=== PATIENT | male | born 1990 | race Caucasian/White ===

== ENCOUNTER → 2018-05-25 | Outpatient (REF) | payer OTHER ==
[2018-05-25 14:25] LABS: APPEARANCE, URINE HAZY (CLEAR); BACTERIA, URINE AUTO NEGATIVE (NEGATIVE); BILIRUBIN, URINE AUTO NEGATIVE (NEGATIVE); BLOOD, URINE BLOOD 1+ (NEGATIVE); COLOR, URINE AMBER (YELLOW); GLUCOSE, URINE (UA) AUTO NEGATIVE (NEGATIVE); KETONE, URINE AUTO NEGATIVE (NEGATIVE); LEUKOCYTE ESTERASE, URINE AUTO NEGATIVE (NEGATIVE); MUCUS, URINE SMALL (NEGATIVE); NITRITE, URINE AUTO NEGATIVE (NEGATIVE); PROTEIN, URINE AUTO NEGATIVE (NEGATIVE); RBC, URINE AUTO 5 /HPF (0-3); SPECIFIC GRAVITY URINE AUTO 1.018 (1.002-1.035); SQUAMOUS EPITHELIAL CELL UR AU 0 /HPF (0-6); UROBILINOGEN, URINE AUTO 0.2 mg/dL (0.0-2.0); WBC, URINE AUTO 2 /HPF (0-3)
[2018-05-25 14:40] LABS: TOTAL PROTEIN,RANDOM URINE 27.2 MG/DL (0.0-12.0)
[2018-05-25 14:41] LABS: COMPLEMENT C3 99 MG/DL (90-180); COMPLEMENT C4 14 MG/DL (10-40); RHEUMATOID FACTOR QUANT < 10.0 IU/ML (<15.0)
[2018-05-29 16:39] LABS: ANA (HEP2) Positive (.); ANTI DOUBLE STRAND-DNA AB <1 IU/mL (0-9); CYCLIC CITRULLINATED PEPTIDE 7 units (0-19); RNP ANTIBODY < 0.2 AI (0.0-0.9); SMITHS ANTIBODY < 0.2 AI (0.0-0.9); SSA SJOGRENS A <0.2 AI (0.0-0.9); SSB SJOGRENS B <0.2 AI (0.0-0.9)
== END ==
LOC: M SFHCPLAZ 12:06
PROVIDERS: ATTEND Internal Medicine Rheumatology
DX: R21 Rash and other nonspecific skin eruption (principal)

== ENCOUNTER → 2018-06-01 | Outpatient (CLI) | payer OTHER ==
[~2018-06-01] MED LIST: GASTROGRAFIN SOLUTION 30ML (Q9963) As Ordered ONE; ISOVUE-370 76% 100ML VIAL (Q9967) As Ordered ONE
--- NOTE | 2018-06-01 21:41 | REP ---
Clinical: History of Crohn disease with abdominal pain and weight loss. Technique: Axial contrast enhanced images from the lung bases to the pubic symphysis using oral (per protocol) and 100 ml Isovue 370 intravenous contrast material with coronal and sagittal re-formations. Comparison: 02/18/2010. Findings: Lung bases are clear. Visualized heart and pericardium normal. Liver, pancreas, bilateral adrenal glands and kidneys are normal. Spleen demonstrates 10 mm cystic lesion along the anterior margin which may represent cyst. The patient is status post cholecystectomy. The the patient is noted to be status post total colectomy with ostomy via the left anterior abdominal wall. Small bowel is without obstruction or acute inflammatory process. Pelvis demonstrates normal bladder. Prostate gland is somewhat heterogeneous and enlarged which may warrant followup. No ascites. No free air. No obvious adenopathy. Abdominal aorta and vasculature normal. Musculoskeletal structures are intact. Impression: 1. 10 mm cystic lesion in the spleen may be followed by ultrasound. Appearance is relatively benign and likely represents simple cyst or hemangioma. 2. Evidence of prior total colectomy. No bowel obstruction or acute inflammatory process noted. 3. No ascites. 4. Mildly enlarged heterogeneous enhancing prostate gland warrants clinical and physical correlation. Electronically Signed by Bear Vila MD 06/01/2018 09:33 P
== END ==
LOC: M RAD 14:10
PROVIDERS: ATTEND Internal Medicine Gastroenterology
DX: K50.919 Crohn's disease, unspecified, with unspecified complications (principal); R63.4 Abnormal weight loss; R93.5 Abnormal findings on diagnostic imaging of other abdominal regions, including retroperitoneum; Z90.49 Acquired absence of other specified parts of digestive tract
CPT/HCPCS: 74177; Q9963; Q9967

== ENCOUNTER 2018-06-07 14:14 | Outpatient (CLI) | payer OTHER ==
[~2018-06-07] VITALS: Ht 167.6 cm; Wt 45.5 kg
[2018-06-07] MEDS ORDERED: ACETAMINOPHEN TAB 650MG DOSE (2X325MG) PO ONE (15:00)
[2018-06-07] MEDS ORDERED: diphenhydrAMINE 25 MG CAP PO ONE (15:00)
[2018-06-07] MEDS ORDERED: VEDOLIZUMAB 300 MG in NS 250 ML IV ONE (15:00)
[2018-06-07 15:07] VITALS: BP 112/65
[2018-06-07 15:45] VITALS: BP 107/66
[2018-06-07 16:00] VITALS: BP 97/60
== END 2018-06-07 16:00 | disposition home or self-care (01) ==
LOC: M INFU 14:14
PROVIDERS: ATTEND Internal Medicine Gastroenterology
DX: K50.90 Crohn's disease, unspecified, without complications (principal)
CPT/HCPCS: 96365; J3380

== ENCOUNTER → 2018-06-28 | Outpatient (REF) | payer OTHER ==
[~2018-06-28] MED LIST changes: +ACIDTAB3 PO; +CLOT1CRE71 TOP; +DOXY-350 PO; +DOXY100C PO; -GASTROGRAFIN SOLUTION 30ML (Q9963) As Ordered ONE; +HYDR-3713 PO; -ISOVUE-370 76% 100ML VIAL (Q9967) As Ordered ONE; +LOPE2EL PO; +PAXI10TA12 PO; +PRED20TA PO
== END ==
LOC: M SFHCPLAZ 09:45
PROVIDERS: ATTEND Dermatology
DX: L02.91 Cutaneous abscess, unspecified (principal)

== ENCOUNTER 2018-07-19 14:43 | Outpatient (CLI) | payer OTHER ==
[~2018-07-19] VITALS: Ht 167.6 cm; Wt 40.0 kg
[2018-07-19 14:55] VITALS: BP 109/57
[2018-07-19] MEDS ORDERED: diphenhydrAMINE 25 MG CAP PO ONE (16:00)
[2018-07-19] MEDS ORDERED: VEDOLIZUMAB 300 MG in NS 250 ML IV ONE (16:00)
[2018-07-19] MEDS ORDERED: ACETAMINOPHEN TAB 650MG DOSE (2X325MG) PO ONE (16:00)
[2018-07-19 16:10] VITALS: BP 105/57
== END 2018-07-19 16:10 | disposition home or self-care (01) ==
LOC: M INFU 14:43
PROVIDERS: ATTEND Internal Medicine Gastroenterology
DX: K50.90 Crohn's disease, unspecified, without complications (principal); Z91.040 Latex allergy status
CPT/HCPCS: 96365; J3380

== ENCOUNTER 2018-11-08 14:31 | Outpatient (CLI) | payer OTHER ==
[~2018-11-08] VITALS: Ht 167.6 cm; Wt 44.7 kg
[2018-11-08 14:35] VITALS: BP 101/67
[2018-11-08] MEDS ORDERED: MULTCAP PO (14:53)
[2018-11-08] MEDS ORDERED: diphenhydrAMINE 25 MG CAP PO ONE (15:30)
[2018-11-08] MEDS ORDERED: VEDOLIZUMAB 300 MG in NS 250 ML IV ONE (15:30)
[2018-11-08] MEDS ORDERED: ACETAMINOPHEN TAB 650MG DOSE (2X325MG) PO ONE (15:30)
[2018-11-08 16:10] VITALS: BP 111/57
== END 2018-11-08 16:10 | disposition home or self-care (01) ==
LOC: M INFU 14:31
PROVIDERS: ATTEND Internal Medicine Gastroenterology
DX: K50.90 Crohn's disease, unspecified, without complications (principal)
CPT/HCPCS: 96365; J3380

== ENCOUNTER 2019-01-03 14:19 | Outpatient (CLI) | payer OTHER ==
[~2019-01-03] VITALS: Ht 167.6 cm; Wt 39.0 kg
[~2019-01-03 14:19] MED LIST changes: +MULTCAP PO
[2019-01-03 14:20] VITALS: BP 95/68
[2019-01-03] MEDS ORDERED: ACETAMINOPHEN TAB 650MG DOSE (2X325MG) PO ONE (14:30)
[2019-01-03] MEDS ORDERED: diphenhydrAMINE 25 MG CAP PO ONE (14:30)
[2019-01-03] MEDS ORDERED: VEDOLIZUMAB 300 MG in NS 250 ML IV ONE (14:30)
[2019-01-03] MEDS ORDERED: ENTY1INJ IV (15:00)
[2019-01-03 15:45] VITALS: BP 99/67
[2019-03-28] MEDS ORDERED: LOPE1CAP5 PO (11:14)
[2019-03-28] MEDS ORDERED: OMEP10CASR PO (11:14)
== END 2019-01-03 15:45 | disposition home or self-care (01) ==
LOC: M INFU 14:19
PROVIDERS: ATTEND Internal Medicine Gastroenterology
DX: K50.90 Crohn's disease, unspecified, without complications (principal); Z79.4 Long term (current) use of insulin; Z79.891 Long term (current) use of opiate analgesic; Z79.899 Other long term (current) drug therapy

== ENCOUNTER 2019-03-05 14:34 | Outpatient (CLI) | payer OTHER ==
[~2019-03-05] VITALS: Ht 167.6 cm; Wt 39.9 kg
[~2019-03-05 14:34] MED LIST changes: +ENTY1INJ IV
[2019-03-05 14:40] VITALS: BP 100/55
[2019-03-05] MEDS ORDERED: ACETAMINOPHEN TAB 650MG DOSE (2X325MG) PO ONE (15:30)
[2019-03-05] MEDS ORDERED: diphenhydrAMINE 25 MG CAP PO ONE (15:30)
[2019-03-05] MEDS ORDERED: VEDOLIZUMAB 300 MG in NS 250 ML IV ONE (16:00)
[2019-03-05 16:25] VITALS: BP 96/59
== END 2019-03-05 16:25 | disposition home or self-care (01) ==
LOC: M INFU 14:34
PROVIDERS: ATTEND Internal Medicine Gastroenterology
DX: K50.90 Crohn's disease, unspecified, without complications (principal); Z91.040 Latex allergy status
CPT/HCPCS: 96365; J3380

== ENCOUNTER 2019-04-10 11:49 | Day surgery (SDC) | payer OTHER ==
[~2019-04-10] VITALS: Ht 167.6 cm; Wt 48.4 kg
[~2019-04-10 11:49] MED LIST changes: +LOPE1CAP5 PO; +NS 1,000 ML IV ONE; +OMEP10CASR PO
[2019-04-10] MEDS ORDERED: propofoL 200 MG/20 ML VIAL As Ordered ONE (12:35)
[2019-04-10] MEDS ORDERED: LIDOCAINE 2% INJ 100 MG/5 ML SDV (FOR ANES.) As Ordered ONE ×2 (12:35→12:40)
--- NOTE | 2019-04-10 12:44 | ROOR ---
Patient Name: Alna Servin Procedure Date: 04/10/2019 12:28 PM Date of : 1990 Age: 28 Room: [facility] Gender: Male Note Status: Finalized Procedure: Upper Endoscopy + Biopsies Indications: Epigastric abdominal pain, Abdominal bloating, Early satiety Providers: Ezekiel Cates MD Referring MD: Lizett Mitchell Requesting Provider: Medicines: Monitored Anesthesia Care Complications: No immediate complications. Procedure: Pre-Anesthesia Assessment: - The heart rate, respiratory rate, oxygen saturations, blood pressure, adequacy of pulmonary ventilation, and response to care were monitored throughout the procedure. The Endoscope was introduced through the mouth, and advanced to the second part of duodenum. The upper GI endoscopy was accomplished without difficulty. The patient tolerated the procedure well. Findings: The Z-line was regular and was found 35 cm from the incisors. Multiple biopsies were obtained with cold forceps for evaluation to rule out Lehman's Esophagus randomly at the gastroesophageal junction. A small hiatal hernia was present. No other significant abnormalities were identified in a careful examination of the stomach. Biopsies were taken with a cold forceps in the gastric antrum for Helicobacter pylori testing. The exam of the duodenum was otherwise normal. Impression: - Z-line regular, 35 cm from the incisors. - Small hiatal hernia. - Multiple biopsies were obtained at the gastroesophageal junction. - Biopsies were taken with a cold forceps for Helicobacter pylori testing. - The examination was otherwise normal. Recommendation: - Patient has a contact number available for emergencies. The signs and symptoms of potential delayed complications were discussed with the patient. Return to normal activities tomorrow. Written discharge instructions were provided to the patient. - High fiber diet. - Discharge patient to home. - Follow an antireflux regimen. - Continue present medications. - Await pathology results. - Telephone GI clinic for pathology results in 1 week. - Return to referring physician. - The findings and recommendations were discussed with the patient's family. Ezekiel Cates MD Ezekiel Cates MD 04/10/2019 12:44:24 PM Electronically signed by Ezekiel Cates MD Number of Addenda: 0 Note Initiated On: 04/10/2019 12:28 PM Estimated Blood Loss: Estimated blood loss: none.
[2019-04-10 13:05] VITALS: BP 98/53
== END 2019-04-10 13:17 | disposition home or self-care (01) ==
LOC: M OPP 11:49
PROVIDERS: ATTEND Internal Medicine Gastroenterology
DX: K44.9 Diaphragmatic hernia without obstruction or gangrene (principal); R10.13 Epigastric pain; R14.0 Abdominal distension (gaseous); R68.81 Early satiety; F17.210 Nicotine dependence, cigarettes, uncomplicated; Z79.899 Other long term (current) drug therapy

== ENCOUNTER 2019-04-17 14:44 | Outpatient (CLI) | payer OTHER ==
[~2019-04-17] VITALS: Ht 167.6 cm; Wt 39.0 kg
[~2019-04-17 14:44] MED LIST changes: +ACETAMINOPHEN TAB 650MG DOSE (2X325MG) PO ONE; -NS 1,000 ML IV ONE; +diphenhydrAMINE 25 MG CAP PO ONE
[2019-04-17 15:00] VITALS: BP 99/55
[2019-04-17] MEDS ORDERED: VEDOLIZUMAB 300 MG in NS 250 ML IV ONE (15:00)
[2019-04-17 16:00] VITALS: BP 93/52
== END 2019-04-17 16:15 | disposition home or self-care (01) ==
LOC: M INFU 14:44
PROVIDERS: ATTEND Internal Medicine Gastroenterology
DX: K50.90 Crohn's disease, unspecified, without complications (principal); Z91.040 Latex allergy status
CPT/HCPCS: 96365; J3380

== ENCOUNTER 2019-05-29 14:30 | Outpatient (CLI) | payer OTHER ==
[~2019-05-29] VITALS: Ht 165.1 cm; Wt 39.0 kg
[2019-05-29 14:25] VITALS: BP 110/68
[~2019-05-29 14:30] MED LIST changes: -ACETAMINOPHEN TAB 650MG DOSE (2X325MG) PO ONE; -diphenhydrAMINE 25 MG CAP PO ONE
[2019-05-29] MEDS ORDERED: VEDOLIZUMAB 300 MG in NS 250 ML IV ONE (15:30)
[2019-05-29] MEDS ORDERED: diphenhydrAMINE 25 MG CAP PO ONE (15:30)
[2019-05-29] MEDS ORDERED: ACETAMINOPHEN TAB 650MG DOSE (2X325MG) PO ONE (15:30)
[2019-05-29 16:00] VITALS: BP 98/58
== END 2019-05-29 16:00 | disposition home or self-care (01) ==
LOC: M INFU 14:30
PROVIDERS: ATTEND Internal Medicine Gastroenterology
DX: K50.90 Crohn's disease, unspecified, without complications (principal); Z91.040 Latex allergy status
CPT/HCPCS: 96365; J3380

== ENCOUNTER 2019-07-10 14:02 | Outpatient (CLI) | payer OTHER ==
[~2019-07-10] VITALS: Ht 167.6 cm; Wt 39.0 kg
[2019-07-10 14:10] VITALS: BP 106/66
[2019-07-10] MEDS ORDERED: VEDOLIZUMAB 300 MG in NS 250 ML IV ONE (15:00)
[2019-07-10] MEDS ORDERED: diphenhydrAMINE 25MG CAP PO ONE (15:00)
[2019-07-10] MEDS ORDERED: ACETAMINOPHEN TAB 650MG DOSE (2X325MG) PO ONE (15:00)
[2019-07-10 15:20] VITALS: BP 106/70
== END 2019-07-10 15:20 | disposition home or self-care (01) ==
LOC: M INFU 14:02
PROVIDERS: ATTEND Internal Medicine Gastroenterology
DX: K50.90 Crohn's disease, unspecified, without complications (principal); Z91.040 Latex allergy status
CPT/HCPCS: 96365; J3380

== ENCOUNTER 2019-10-03 14:28 | Outpatient (CLI) | payer OTHER ==
[~2019-10-03] VITALS: Ht 167.6 cm; Wt 88.0 kg
[2019-10-03 14:44] VITALS: BP 99/70
[2019-10-03] MEDS ORDERED: diphenhydrAMINE 25MG CAP PO ONE (14:45)
[2019-10-03] MEDS ORDERED: VEDOLIZUMAB 300 MG in NS 250 ML IV ONE (14:45)
[2019-10-03] MEDS ORDERED: ACETAMINOPHEN TAB 650MG DOSE (2X325MG) PO ONE (14:45)
[2019-10-03 15:44] VITALS: BP 100/59
== END 2019-10-03 15:40 | disposition home or self-care (01) ==
LOC: M INFU 14:28
PROVIDERS: ATTEND Internal Medicine Gastroenterology
DX: K50.90 Crohn's disease, unspecified, without complications (principal)
CPT/HCPCS: 96365; J3380

== ENCOUNTER 2019-11-14 14:30 | Outpatient (CLI) | payer OTHER ==
[~2019-11-14 14:30] MED LIST changes: +VEDOLIZUMAB 300MG VIAL (ENTYVIO) (J3380 PER 1MG) ONE
== END 2019-11-14 16:10 ==
LOC: M INFU 14:30
PROVIDERS: ATTEND Internal Medicine Gastroenterology
DX: K50.90 Crohn's disease, unspecified, without complications (principal)
CPT/HCPCS: 96365; J3380

== ENCOUNTER 2019-12-26 14:22 | Outpatient (CLI) | payer OTHER ==
[~2019-12-26] VITALS: Ht 167.6 cm; Wt 39.0 kg
[~2019-12-26 14:22] MED LIST changes: -VEDOLIZUMAB 300MG VIAL (ENTYVIO) (J3380 PER 1MG) ONE
[2019-12-26 14:25] VITALS: BP 99/62
[2019-12-26] MEDS ORDERED: diphenhydrAMINE 25MG CAP PO ONE (14:30)
[2019-12-26] MEDS ORDERED: VEDOLIZUMAB 300 MG in NS 250 ML IV ONE (14:30)
[2019-12-26] MEDS ORDERED: ACETAMINOPHEN TAB 650MG DOSE (2X325MG) PO ONE (14:30)
[2019-12-26 15:30] VITALS: BP 92/60
== END 2019-12-26 15:30 | disposition home or self-care (01) ==
LOC: M INFU 14:22
PROVIDERS: ATTEND Internal Medicine Gastroenterology
DX: K50.90 Crohn's disease, unspecified, without complications (principal)
CPT/HCPCS: 96365; J3380

== ENCOUNTER 2020-02-06 14:31 | Outpatient (CLI) | payer OTHER ==
[~2020-02-06] VITALS: Ht 167.6 cm; Wt 39.0 kg
[~2020-02-06 14:31] MED LIST changes: +ACETAMINOPHEN TAB 650MG DOSE (2X325MG) PO ONE; +VEDOLIZUMAB 300 MG in NS 250 ML IV ONE; +diphenhydrAMINE 25MG CAP PO ONE
[2020-02-06 14:45] VITALS: BP 95/63
[2020-02-06 15:45] VITALS: BP 103/70
== END 2020-02-06 15:45 | disposition home or self-care (01) ==
LOC: M INFU 14:31
PROVIDERS: ATTEND Internal Medicine Gastroenterology
DX: K50.90 Crohn's disease, unspecified, without complications (principal); Z91.040 Latex allergy status
CPT/HCPCS: 96365; J3380

== ENCOUNTER 2020-04-30 14:20 | Outpatient (CLI) | payer OTHER ==
[~2020-04-30] VITALS: Ht 167.6 cm; Wt 39.0 kg
[~2020-04-30 14:20] MED LIST changes: -ACETAMINOPHEN TAB 650MG DOSE (2X325MG) PO ONE; -VEDOLIZUMAB 300 MG in NS 250 ML IV ONE; -diphenhydrAMINE 25MG CAP PO ONE
[2020-04-30] MEDS ORDERED: VEDOLIZUMAB 300 MG in NS 250 ML IV ONE (14:30)
[2020-04-30] MEDS ORDERED: ACETAMINOPHEN TAB 650MG DOSE (2X325MG) PO ONE (14:30)
[2020-04-30] MEDS ORDERED: diphenhydrAMINE 25MG CAP PO ONE (14:30)
[2020-04-30 14:48] VITALS: BP 109/55
[2020-04-30 15:46] VITALS: BP 97/62
== END 2020-04-30 15:50 | disposition home or self-care (01) ==
LOC: M INFU 14:20
PROVIDERS: ATTEND Internal Medicine Gastroenterology
DX: K50.90 Crohn's disease, unspecified, without complications (principal); Z91.040 Latex allergy status
CPT/HCPCS: 96365; J3380

== ENCOUNTER 2020-06-11 14:24 | Outpatient (CLI) | payer OTHER ==
[~2020-06-11] VITALS: Ht 170.2 cm; Wt 39.9 kg
[2020-06-11] MEDS ORDERED: VEDOLIZUMAB 300 MG in NS 250 ML IV ONE (14:30)
[2020-06-11] MEDS ORDERED: ACETAMINOPHEN TAB 650MG DOSE (2X325MG) PO ONE (14:30)
[2020-06-11] MEDS ORDERED: diphenhydrAMINE 25MG CAP PO ONE (14:30)
[2020-06-11 14:46] VITALS: BP 92/60
[2020-06-11 14:47] VITALS: BP 92/60
[2020-06-11 15:50] VITALS: BP 95/58
== END 2020-06-11 15:50 | disposition home or self-care (01) ==
LOC: M INFU 14:24
PROVIDERS: ATTEND Internal Medicine Gastroenterology
DX: K50.90 Crohn's disease, unspecified, without complications (principal); Z91.040 Latex allergy status
CPT/HCPCS: 96365; J3380

== ENCOUNTER 2020-07-23 14:03 | Outpatient (CLI) | payer OTHER ==
[~2020-07-23] VITALS: Ht 170.2 cm; Wt 39.9 kg
[~2020-07-23 14:03] MED LIST changes: +ACETAMINOPHEN TAB 650MG DOSE (2X325MG) PO ONE; +VEDOLIZUMAB 300 MG in NS 250 ML IV ONE; +diphenhydrAMINE 25MG CAP PO ONE
[2020-07-23 14:29] VITALS: BP 127/60
[2020-07-23] MEDS ORDERED: ACETAMINOPHEN TAB 650MG DOSE (2X325MG) PO ONE (14:30)
[2020-07-23] MEDS ORDERED: VEDOLIZUMAB 300 MG in NS 250 ML IV ONE (14:30)
[2020-07-23] MEDS ORDERED: diphenhydrAMINE 25MG CAP PO ONE (14:30)
[2020-07-23 15:15] VITALS: BP 94/56
== END 2020-07-23 15:15 | disposition home or self-care (01) ==
LOC: M INFU 14:03
PROVIDERS: ATTEND Internal Medicine Gastroenterology
DX: K50.90 Crohn's disease, unspecified, without complications (principal); Z91.040 Latex allergy status
CPT/HCPCS: 96365; J3380

== ENCOUNTER 2020-09-03 14:15 | Outpatient (CLI) | payer MEDICARE, OTHER ==
[~2020-09-03] VITALS: Ht 167.6 cm; Wt 40.0 kg
[~2020-09-03 14:15] MED LIST changes: -ACETAMINOPHEN TAB 650MG DOSE (2X325MG) PO ONE; -VEDOLIZUMAB 300 MG in NS 250 ML IV ONE; -diphenhydrAMINE 25MG CAP PO ONE
[2020-09-03 14:30] VITALS: BP 105/56
[2020-09-03] MEDS ORDERED: diphenhydrAMINE 25MG CAP PO ONE (14:30)
[2020-09-03] MEDS ORDERED: ACETAMINOPHEN TAB 650MG DOSE (2X325MG) PO ONE (14:30)
[2020-09-03] MEDS ORDERED: VEDOLIZUMAB 300 MG in NS 250 ML IV ONE (14:30)
[2020-09-03 15:40] VITALS: BP 107/75
== END 2020-09-03 15:40 | disposition home or self-care (01) ==
LOC: M INFU 14:15
PROVIDERS: ATTEND Internal Medicine Gastroenterology
DX: K50.90 Crohn's disease, unspecified, without complications (principal)
CPT/HCPCS: 96365; J3380

== ENCOUNTER 2020-10-15 14:21 | Outpatient (CLI) | payer MEDICARE, OTHER ==
[~2020-10-15] VITALS: Ht 167.6 cm; Wt 39.9 kg
[2020-10-15 14:25] VITALS: BP 99/62
[2020-10-15] MEDS ORDERED: ACETAMINOPHEN TAB 650MG DOSE (2X325MG) PO ONE (14:30)
[2020-10-15] MEDS ORDERED: diphenhydrAMINE 25MG CAP PO ONE (14:30)
[2020-10-15] MEDS ORDERED: VEDOLIZUMAB 300 MG in NS 250 ML IV ONE (14:30)
[2020-10-15 15:35] VITALS: BP 96/62
== END 2020-10-15 15:35 | disposition home or self-care (01) ==
LOC: M INFU 14:21
PROVIDERS: ATTEND Internal Medicine Gastroenterology
DX: K50.90 Crohn's disease, unspecified, without complications (principal); Z91.040 Latex allergy status
CPT/HCPCS: 96365; J3380

== ENCOUNTER 2020-11-26 14:36 | Outpatient (CLI) | payer OTHER ==
[~2020-11-26] VITALS: Ht 167.6 cm; Wt 39.9 kg
[~2020-11-26 14:36] MED LIST changes: +ACETAMINOPHEN TAB 650MG DOSE (2X325MG) PO ONE; -DOXY100C PO; +DOXY100C3 PO; +VEDOLIZUMAB 300 MG in NS 250 ML IV ONE; +diphenhydrAMINE 25MG CAP PO ONE
[2020-11-26 15:00] VITALS: BP 108/68
[2020-11-26 15:13] VITALS: BP 108/68
[2020-11-26 15:42] VITALS: BP 104/63
== END 2020-11-26 15:45 | disposition home or self-care (01) ==
LOC: M INFU 14:36
PROVIDERS: ATTEND Internal Medicine Gastroenterology
DX: K50.90 Crohn's disease, unspecified, without complications (principal); Z91.040 Latex allergy status
CPT/HCPCS: 96365; J3380

== ENCOUNTER 2021-01-07 14:10 | Outpatient (CLI) | payer OTHER ==
[~2021-01-07] VITALS: Ht 167.6 cm; Wt 39.9 kg
[~2021-01-07 14:10] MED LIST changes: -ACETAMINOPHEN TAB 650MG DOSE (2X325MG) PO ONE; -VEDOLIZUMAB 300 MG in NS 250 ML IV ONE; -diphenhydrAMINE 25MG CAP PO ONE
[2021-01-07 14:15] VITALS: BP 104/67
[2021-01-07] MEDS ORDERED: diphenhydrAMINE 25MG CAP PO ONE (14:30)
[2021-01-07] MEDS ORDERED: ACETAMINOPHEN TAB 650MG DOSE (2X325MG) PO ONE (14:30)
[2021-01-07] MEDS ORDERED: VEDOLIZUMAB 300 MG in NS 250 ML IV ONE (14:30)
[2021-01-07 15:25] VITALS: BP 98/54
== END 2021-01-07 15:35 | disposition home or self-care (01) ==
LOC: M INFU 14:10
PROVIDERS: ATTEND Internal Medicine Gastroenterology
DX: K50.90 Crohn's disease, unspecified, without complications (principal); Z91.040 Latex allergy status
CPT/HCPCS: 96365; J3380

== ENCOUNTER 2021-02-18 14:43 | Outpatient (CLI) | payer OTHER ==
[~2021-02-18] VITALS: Ht 167.6 cm; Wt 39.9 kg
[~2021-02-18 14:43] MED LIST changes: +ACETAMINOPHEN TAB 650MG DOSE (2X325MG) PO ONE; +VEDOLIZUMAB 300 MG in NS 250 ML IV ONE; +diphenhydrAMINE 25MG CAP PO ONE
[2021-02-18 14:58] VITALS: BP 123/72
[2021-02-18 16:10] VITALS: BP 106/59
== END 2021-02-18 16:10 | disposition home or self-care (01) ==
LOC: M INFU 14:43
PROVIDERS: ATTEND Internal Medicine Gastroenterology
DX: K50.90 Crohn's disease, unspecified, without complications (principal); Z91.040 Latex allergy status
CPT/HCPCS: 96365; J3380

== ENCOUNTER 2021-04-01 14:23 | Outpatient (CLI) | payer OTHER ==
[~2021-04-01] VITALS: Ht 167.6 cm; Wt 50.0 kg
[~2021-04-01 14:23] MED LIST changes: -ACETAMINOPHEN TAB 650MG DOSE (2X325MG) PO ONE; -VEDOLIZUMAB 300 MG in NS 250 ML IV ONE; -diphenhydrAMINE 25MG CAP PO ONE
[2021-04-01] MEDS ORDERED: diphenhydrAMINE 25MG CAP PO ONE (14:30)
[2021-04-01] MEDS ORDERED: ACETAMINOPHEN TAB 650MG DOSE (2X325MG) PO ONE (14:30)
[2021-04-01] MEDS ORDERED: VEDOLIZUMAB 300 MG in NS 250 ML IV ONE (14:30)
[2021-04-01 14:35] VITALS: BP 103/63
[2021-04-01 15:45] VITALS: BP 110/69
== END 2021-04-01 15:45 | disposition home or self-care (01) ==
LOC: M INFU 14:23
PROVIDERS: ATTEND Internal Medicine Gastroenterology
DX: K50.90 Crohn's disease, unspecified, without complications (principal); Z91.040 Latex allergy status
CPT/HCPCS: 96365; J3380

== ENCOUNTER 2021-05-20 15:08 | Outpatient (CLI) | payer OTHER ==
[~2021-05-20] VITALS: Ht 167.6 cm; Wt 39.0 kg
[~2021-05-20 15:08] MED LIST changes: +ACETAMINOPHEN TAB 650MG DOSE (2X325MG) PO ONE; +VEDOLIZUMAB 300 MG in NS 250 ML IV ONE; +diphenhydrAMINE 25MG CAP PO ONE
[2021-05-20 15:46] VITALS: BP 109/71
[2021-05-20 16:10] VITALS: BP 118/74
== END 2021-05-20 16:10 | disposition home or self-care (01) ==
LOC: M INFU 15:08
PROVIDERS: ATTEND Internal Medicine Gastroenterology
DX: K50.90 Crohn's disease, unspecified, without complications (principal); Z91.040 Latex allergy status
CPT/HCPCS: 96365; J3380

== ENCOUNTER 2021-08-12 14:59 | Outpatient (CLI) | payer MEDICARE, OTHER ==
[~2021-08-12] VITALS: Ht 167.6 cm; Wt 40.0 kg
[~2021-08-12 14:59] MED LIST changes: -ACETAMINOPHEN TAB 650MG DOSE (2X325MG) PO ONE; -VEDOLIZUMAB 300 MG in NS 250 ML IV ONE; -diphenhydrAMINE 25MG CAP PO ONE
[2021-08-12] MEDS ORDERED: diphenhydrAMINE 25MG CAP PO ONE (15:00)
[2021-08-12] MEDS ORDERED: ACETAMINOPHEN TAB 650MG DOSE (2X325MG) PO ONE (15:00)
[2021-08-12] MEDS ORDERED: VEDOLIZUMAB 300 MG in NS 250 ML IV ONE (15:00)
[2021-08-12 15:10] VITALS: BP 101/61
== END 2021-08-12 16:00 | disposition home or self-care (01) ==
LOC: M INFU 14:59
PROVIDERS: ATTEND Internal Medicine Gastroenterology
DX: K50.919 Crohn's disease, unspecified, with unspecified complications (principal); Z91.040 Latex allergy status
CPT/HCPCS: 96365; J3380

== ENCOUNTER 2021-12-23 14:45 | Outpatient (CLI) | payer MEDICARE, OTHER ==
[~2021-12-23] VITALS: Ht 167.6 cm; Wt 40.0 kg
[~2021-12-23 14:45] MED LIST changes: +ACETAMINOPHEN TAB 650MG DOSE (2X325MG) PO ONE; +VEDOLIZUMAB 300 MG in NS 250 ML IV ONE; +diphenhydrAMINE 25MG CAP PO ONE
[2021-12-23 15:03] VITALS: BP 112/66
[2021-12-23 16:05] VITALS: BP 105/65
== END 2021-12-23 16:05 | disposition home or self-care (01) ==
LOC: M INFU 14:45
PROVIDERS: ATTEND Internal Medicine Gastroenterology
DX: K50.90 Crohn's disease, unspecified, without complications (principal)

== ENCOUNTER 2022-02-03 14:10 | Outpatient (CLI) | payer MEDICARE, OTHER ==
[~2022-02-03] VITALS: Ht 167.6 cm; Wt 39.0 kg
[~2022-02-03 14:10] MED LIST changes: -DOXY-350 PO; +DOXY-444 PO
[2022-02-03 14:21] VITALS: BP 109/66
[2022-02-03 15:11] VITALS: BP 101/55
== END 2022-02-03 15:15 | disposition home or self-care (01) ==
LOC: M INFU 14:10
PROVIDERS: ATTEND Internal Medicine Gastroenterology
DX: K50.90 Crohn's disease, unspecified, without complications (principal); Z91.040 Latex allergy status

== ENCOUNTER 2022-03-24 14:20 | Outpatient (CLI) | payer MEDICARE, OTHER ==
[~2022-03-24] VITALS: Ht 167.6 cm; Wt 39.0 kg
[~2022-03-24 14:20] MED LIST changes: -PAXI10TA12 PO; +PAXI10TA13 PO
[2022-03-24 14:29] VITALS: BP 118/66
[2022-03-24] MEDS ORDERED: ACETAMINOPHEN TAB 650MG DOSE (2X325MG) PO ONE (14:30)
[2022-03-24] MEDS ORDERED: VEDOLIZUMAB 300 MG in NS 250 ML IV ONE (14:30)
[2022-03-24] MEDS ORDERED: diphenhydrAMINE 25MG CAP PO ONE (14:30)
[2022-03-24 15:54] VITALS: BP 112/67
== END 2022-03-24 15:50 | disposition home or self-care (01) ==
LOC: M INFU 14:20
PROVIDERS: ATTEND Internal Medicine Gastroenterology
DX: K50.90 Crohn's disease, unspecified, without complications (principal)

== ENCOUNTER 2022-05-05 13:55 | Outpatient (CLI) | payer MEDICARE, OTHER ==
[~2022-05-05] VITALS: Ht 167.6 cm; Wt 39.0 kg
[~2022-05-05 13:55] MED LIST changes: -ACETAMINOPHEN TAB 650MG DOSE (2X325MG) PO ONE; -VEDOLIZUMAB 300 MG in NS 250 ML IV ONE; -diphenhydrAMINE 25MG CAP PO ONE
[2022-05-05] MEDS ORDERED: ACETAMINOPHEN TAB 650MG DOSE (2X325MG) PO ONE (14:30)
[2022-05-05] MEDS ORDERED: diphenhydrAMINE 25MG CAP PO ONE (14:30)
[2022-05-05] MEDS ORDERED: VEDOLIZUMAB 300 MG in NS 250 ML IV ONE (14:30)
[2022-05-05 14:50] VITALS: BP 133/78
[2022-05-05 16:00] VITALS: BP 111/72
== END 2022-05-05 16:00 | disposition home or self-care (01) ==
LOC: M INFU 13:55
PROVIDERS: ATTEND Internal Medicine Gastroenterology
DX: K50.90 Crohn's disease, unspecified, without complications (principal); Z91.040 Latex allergy status

== ENCOUNTER 2022-06-16 14:40 | Outpatient (CLI) | payer MEDICARE, OTHER ==
[~2022-06-16] VITALS: Ht 167.6 cm; Wt 39.0 kg
[~2022-06-16 14:40] MED LIST changes: +ACETAMINOPHEN TAB 650MG DOSE (2X325MG) PO ONE; +VEDOLIZUMAB 300 MG in NS 250 ML IV ONE; +diphenhydrAMINE 25MG CAP PO ONE
[2022-06-16 14:53] VITALS: BP 122/73
[2022-06-16 15:45] VITALS: BP 108/69
== END 2022-06-16 15:45 | disposition home or self-care (01) ==
LOC: M INFU 14:40
PROVIDERS: ATTEND Internal Medicine Gastroenterology
DX: K50.90 Crohn's disease, unspecified, without complications (principal); Z91.040 Latex allergy status

== ENCOUNTER → 2022-07-28 | Outpatient (CLI) | payer MEDICARE, OTHER ==
[~2022-07-28] VITALS: Ht 167.6 cm; Wt 45.5 kg
[2022-07-28 14:40] VITALS: BP 111/72
[2022-07-28 15:55] VITALS: BP 120/78
== END ==
LOC: M INFU 14:30
PROVIDERS: ATTEND Internal Medicine Gastroenterology
DX: K50.90 Crohn's disease, unspecified, without complications (principal); Z91.040 Latex allergy status

== ENCOUNTER 2022-09-15 07:51 | Outpatient (CLI) | payer MEDICARE, OTHER ==
[~2022-09-15] VITALS: Ht 167.6 cm; Wt 39.0 kg
[2022-09-15] MEDS ORDERED: ACETAMINOPHEN TAB 650MG DOSE (2X325MG) PO ONE (14:30)
[2022-09-15] MEDS ORDERED: diphenhydrAMINE 25MG CAP PO ONE (14:30)
[2022-09-15] MEDS ORDERED: VEDOLIZUMAB 300 MG in NS 250 ML IV ONE (14:30)
[2022-09-15 14:35] VITALS: BP 114/72; O2SAT 96
[2022-09-15 15:58] VITALS: BP 100/61; O2SAT 100
== END 2022-09-15 15:55 | disposition home or self-care (01) ==
LOC: M INFU 07:51
PROVIDERS: ATTEND Internal Medicine Gastroenterology
DX: K50.90 Crohn's disease, unspecified, without complications (principal)

== ENCOUNTER 2022-10-27 13:35 | Outpatient (CLI) | payer MEDICARE, OTHER ==
[~2022-10-27] VITALS: Ht 167.6 cm; Wt 42.6 kg
[2022-10-27 15:05] VITALS: BP 107/57; O2SAT 99
== END 2022-10-27 15:05 | disposition home or self-care (01) ==
LOC: M INFU 13:35
PROVIDERS: ATTEND Internal Medicine Gastroenterology
DX: K50.90 Crohn's disease, unspecified, without complications (principal)

== ENCOUNTER 2022-11-24 14:30 | Outpatient (CLI) | payer MEDICARE, OTHER ==
[~2022-11-24] VITALS: Ht 167.6 cm; Wt 41.3 kg
[2022-11-24 14:00] VITALS: BP 113/73; O2SAT 97
[2022-11-24 14:30] VITALS: BP 113/73; TEMP 98.7; O2SAT 97
[~2022-11-24 14:30] MED LIST changes: -ACETAMINOPHEN TAB 650MG DOSE (2X325MG) PO ONE; -VEDOLIZUMAB 300 MG in NS 250 ML IV ONE; -diphenhydrAMINE 25MG CAP PO ONE
[2022-11-24] MEDS ORDERED: diphenhydrAMINE 25MG CAP PO ONE (14:45)
[2022-11-24] MEDS ORDERED: ACETAMINOPHEN TAB 650MG DOSE (2X325MG) PO ONE (14:45)
[2022-11-24] MEDS ORDERED: VEDOLIZUMAB 300 MG in NS 250 ML IV ONE (14:45)
[2022-11-24 15:38] VITALS: BP 111/75; O2SAT 100
== END 2022-11-24 15:40 ==
LOC: M INFU 14:30
PROVIDERS: ATTEND Internal Medicine Gastroenterology
DX: K50.90 Crohn's disease, unspecified, without complications (principal)

== ENCOUNTER 2022-12-22 14:50 | Outpatient (CLI) | payer MEDICARE, OTHER ==
[~2022-12-22] VITALS: Ht 157.5 cm; Wt 39.0 kg
[2022-12-22 14:50] VITALS: BP 97/60; O2SAT 99
[~2022-12-22 14:50] MED LIST changes: +ACETAMINOPHEN TAB 650MG DOSE (2X325MG) PO ONE; +VEDOLIZUMAB 300 MG in NS 250 ML IV ONE; +diphenhydrAMINE 25MG CAP PO ONE
[2022-12-22 16:20] VITALS: BP 96/60; O2SAT 100
== END 2022-12-22 16:25 | disposition home or self-care (01) ==
LOC: M INFU 14:50
PROVIDERS: ATTEND Internal Medicine Gastroenterology
DX: K50.90 Crohn's disease, unspecified, without complications (principal); Z91.040 Latex allergy status

== ENCOUNTER 2023-01-19 15:05 | Outpatient (CLI) | payer MEDICARE, OTHER ==
[~2023-01-19] VITALS: Ht 167.6 cm; Wt 46.0 kg
[2023-01-19 15:05] VITALS: BP 112/65; O2SAT 96
[~2023-01-19 15:05] MED LIST changes: -ACETAMINOPHEN TAB 650MG DOSE (2X325MG) PO ONE; -VEDOLIZUMAB 300 MG in NS 250 ML IV ONE; -diphenhydrAMINE 25MG CAP PO ONE
[2023-01-19] MEDS ORDERED: diphenhydrAMINE 25MG CAP PO ONE (15:30)
[2023-01-19] MEDS ORDERED: ACETAMINOPHEN TAB 650MG DOSE (2X325MG) PO ONE (15:30)
[2023-01-19] MEDS ORDERED: VEDOLIZUMAB 300 MG in NS 250 ML IV ONE (15:30)
[2023-01-19 16:30] VITALS: BP 109/61; O2SAT 100
== END 2023-01-19 16:30 | disposition home or self-care (01) ==
LOC: M INFU 15:05
PROVIDERS: ATTEND Internal Medicine Gastroenterology
DX: K50.90 Crohn's disease, unspecified, without complications (principal)

== ENCOUNTER → 2023-01-30 | Outpatient (CLI) | payer MEDICARE, OTHER ==
[~2023-01-30] MED LIST changes: +E-Z-GAS II EFFERVESCENT PACKET (SODIUM BICARB./CITRIC ACID/SIMETHICONE) As Ordered ONE; +E-Z-HD 98% w/w 340GM SUSP BTL As Ordered ONE; +E-Z-PAQUE 96% w/w SUSP 176GM BTL As Ordered ONE
== END ==
LOC: M RAD 08:52
PROVIDERS: ATTEND Internal Medicine Gastroenterology
DX: K50.918 Crohn's disease, unspecified, with other complication (principal)

== ENCOUNTER 2023-03-16 15:50 | Outpatient (CLI) | payer MEDICARE, OTHER ==
[~2023-03-16] VITALS: Ht 167.6 cm; Wt 45.9 kg
[~2023-03-16 15:50] MED LIST changes: +ACETAMINOPHEN TAB 650MG DOSE (2X325MG) PO ONE; +ALBUTEROL SULFATE 2.5MG/0.5ML INH NEB SOLN INH PRN; -E-Z-GAS II EFFERVESCENT PACKET (SODIUM BICARB./CITRIC ACID/SIMETHICONE) As Ordered ONE; -E-Z-HD 98% w/w 340GM SUSP BTL As Ordered ONE; -E-Z-PAQUE 96% w/w SUSP 176GM BTL As Ordered ONE; +EPINEPHrine INJ 1 MG/ML 1ML AMP IM PRN; +NS 1,000 ML IV SCH; +VEDOLIZUMAB 300 MG in NS 250 ML IV ONE; +diphenhydrAMINE 25MG CAP PO ONE; +diphenhydrAMINE 50MG/ML VIAL IV PRN; +methylPREDNISolone 125MG 2ML VIAL IV PRN
[2023-03-16] MEDS ORDERED: diphenhydrAMINE 25MG CAP PO ONE (16:00)
[2023-03-16] MEDS ORDERED: VEDOLIZUMAB 300 MG in NS 250 ML IV ONE (16:00)
[2023-03-16] MEDS ORDERED: NS 1,000 ML IV SCH (16:00)
[2023-03-16] MEDS ORDERED: ACETAMINOPHEN TAB 650MG DOSE (2X325MG) PO ONE (16:00)
[2023-03-16 16:05] VITALS: BP 105/71; O2SAT 99
[2023-03-16 16:59] VITALS: BP 123/72; O2SAT 100
== END 2023-03-16 16:55 | disposition home or self-care (01) ==
LOC: M INFU 15:50
PROVIDERS: ATTEND Internal Medicine Gastroenterology
DX: K50.90 Crohn's disease, unspecified, without complications (principal)

== ENCOUNTER 2023-05-11 15:00 | Outpatient (CLI) | payer MEDICARE, MEDICAID ==
[~2023-05-11] VITALS: Ht 167.6 cm; Wt 43.0 kg
[2023-05-11 15:00] VITALS: BP 117/68; O2SAT 100
[~2023-05-11 15:00] MED LIST changes: -ACETAMINOPHEN TAB 650MG DOSE (2X325MG) PO ONE; -NS 1,000 ML IV SCH; -VEDOLIZUMAB 300 MG in NS 250 ML IV ONE; -diphenhydrAMINE 25MG CAP PO ONE
[2023-05-11 15:05] VITALS: BP 117/68; TEMP 98.3; O2SAT 100
[2023-05-11] MEDS: NS 1,000 ML IV SCH (15:36)
[2023-05-11] MEDS: ACETAMINOPHEN TAB 650MG DOSE (2X325MG) PO ONE (15:38)
[2023-05-11] MEDS: diphenhydrAMINE 25MG CAP PO ONE (15:38)
[2023-05-11] MEDS: VEDOLIZUMAB 300 MG in NS 250 ML IV ONE (15:38)
[2023-05-11 16:13] VITALS: BP 98/68; O2SAT 100
== END 2023-05-11 16:13 | disposition home or self-care (01) ==
LOC: M INFU 15:00
PROVIDERS: ATTEND Internal Medicine Gastroenterology
DX: K50.90 Crohn's disease, unspecified, without complications (principal)

== ENCOUNTER → 2023-05-25 | Outpatient (CLI) | payer MEDICARE, MEDICAID ==
[~2023-05-25] MED LIST changes: -ALBUTEROL SULFATE 2.5MG/0.5ML INH NEB SOLN INH PRN; -EPINEPHrine INJ 1 MG/ML 1ML AMP IM PRN; -diphenhydrAMINE 50MG/ML VIAL IV PRN; -methylPREDNISolone 125MG 2ML VIAL IV PRN
[2023-05-25 15:45] LABS: INR 1.02; PROTHROMBIN TIME 13.1 SECONDS (12.5-14.5)
[2023-05-25 15:49] LABS: BASO % 0.3 % (0.0-1.0); EOS # 0.1 10^3/uL (0.0-0.5); EOS % 0.6 % (0.0-3.0); HEMOGLOBIN 14.9 g/dl (13.5-17.5); LYMPH % 9.4 % (24.0-44.0); MEAN CORPUSCULAR HEMOGLOBIN 31.8 pg (27.0-33.0); MEAN CORPUSCULAR HGB CONC 35.5 g/dl (32.0-36.5); MEAN CORPUSCULAR VOLUME 89.6 fl (80.0-96.0); MONO # 0.6 10^3/uL (0.0-0.8); MONO % 5.7 % (2.0-8.0); NEUTROPHILS # 9.2 10^3/uL (1.5-8.5); NEUTROPHILS % 83.6 % (36.0-66.0); PLATELET COUNT, AUTOMATED 366 10^3/uL (150-450); RED BLOOD COUNT 4.69 10^6/uL (4.30-6.10); WHITE BLOOD COUNT 10.9 10^3/uL (4.0-10.0)
[2023-05-25 16:03] LABS: C REACTIVE PROTEIN QUANTITATIV < 0.40 MG/DL (<1.0)
[2023-05-25 16:04] LABS: ALKALINE PHOSPHATASE 101 U/L (46-116); ALT/SGPT 33 U/L (7.0-40); AST/SGOT 18 U/L (<34); BILIRUBIN,TOTAL 0.7 MG/DL (0.3-1.2); BLOOD UREA NITROGEN 29 MG/DL (9-23); CALCIUM LEVEL 9.3 MG/DL (8.5-10.1); CARBON DIOXIDE LEVEL 23 MMOL/L (20-31); CHLORIDE LEVEL 96 MMOL/L (98-107); GLOMERULAR FILTRATION RATE > 60.0 (>60); GLUCOSE, FASTING 115 MG/DL (60-100); POTASSIUM SERUM 4.8 MMOL/L (3.5-5.1); SODIUM LEVEL 128 MMOL/L (136-145); TOTAL PROTEIN 8.2 G/DL (5.7-8.2)
== END ==
LOC: M LAB 14:48
PROVIDERS: ATTEND Internal Medicine Gastroenterology
DX: K50.918 Crohn's disease, unspecified, with other complication (principal)

== ENCOUNTER → 2023-05-26 | Outpatient (REF) | payer OTHER, MEDICAID | LOC: M LAB REF 11:34 | PROVIDERS: ATTEND Internal Medicine Gastroenterology | DX: K50.918 Crohn's disease, unspecified, with other complication (principal) ==

== ENCOUNTER 2023-06-08 14:30 | Outpatient (CLI) | payer MEDICARE, MEDICAID ==
[~2023-06-08] VITALS: Ht 167.6 cm; Wt 45.5 kg
[2023-06-08 14:30] VITALS: BP 120/76; O2SAT 100
[~2023-06-08 14:30] MED LIST changes: +ACETAMINOPHEN TAB 650MG DOSE (2X325MG) PO ONE; +ALBUTEROL SULFATE 2.5MG/0.5ML INH NEB SOLN INH PRN; +EPINEPHrine INJ 1 MG/ML 1ML AMP IM PRN; +NS 1,000 ML IV SCH; +diphenhydrAMINE 25MG CAP PO ONE; +diphenhydrAMINE 50MG/ML VIAL IV PRN; +methylPREDNISolone 125MG 2ML VIAL IV PRN
[2023-06-08] MEDS: VEDOLIZUMAB 300 MG in NS 250 ML IV ONE (14:56)
[2023-06-08 15:25] VITALS: BP 122/75; O2SAT 100
== END 2023-06-08 15:30 | disposition home or self-care (01) ==
LOC: M INFU 14:30
PROVIDERS: ATTEND Internal Medicine Gastroenterology
DX: K50.919 Crohn's disease, unspecified, with unspecified complications (principal)

== ENCOUNTER → 2023-06-26 | Outpatient (REF) | payer MEDICARE, MEDICAID ==
[~2023-06-26] MED LIST changes: -ACETAMINOPHEN TAB 650MG DOSE (2X325MG) PO ONE; -ALBUTEROL SULFATE 2.5MG/0.5ML INH NEB SOLN INH PRN; -EPINEPHrine INJ 1 MG/ML 1ML AMP IM PRN; -NS 1,000 ML IV SCH; -diphenhydrAMINE 25MG CAP PO ONE; -diphenhydrAMINE 50MG/ML VIAL IV PRN; -methylPREDNISolone 125MG 2ML VIAL IV PRN
[2023-06-26 14:17] LABS: APPEARANCE, URINE HAZY (CLEAR); BACTERIA, URINE AUTO NEGATIVE (NEGATIVE); BILIRUBIN, URINE AUTO NEGATIVE (NEGATIVE); BLOOD, URINE BLOOD 3+ (NEGATIVE); CALCIUM OXALATE CRYSTALS SMALL; COLOR, URINE YELLOW (YELLOW); GLUCOSE, URINE (UA) AUTO NEGATIVE (NEGATIVE); KETONE, URINE AUTO NEGATIVE (NEGATIVE); LEUKOCYTE ESTERASE, URINE AUTO NEGATIVE (NEGATIVE); MUCUS, URINE SMALL (NEGATIVE); NITRITE, URINE AUTO NEGATIVE (NEGATIVE); PROTEIN, URINE AUTO 1+ mg/dL (NEGATIVE); RBC, URINE AUTO TNTC /HPF (0-3); SQUAMOUS EPITHELIAL CELL UR AU 0 /HPF (0-6); UROBILINOGEN, URINE AUTO 0.2 mg/dL (0.0-2.0); WBC, URINE AUTO 1 /HPF (0-3)
== END ==
LOC: M SMT 13:11
PROVIDERS: ATTEND Nurse Practitioner Family
DX: R31.29 Other microscopic hematuria (principal)

== ENCOUNTER → 2023-06-26 | Outpatient (CLI) | payer MEDICARE, MEDICAID ==
[2023-06-26 13:39] LABS: ALBUMIN 4.3 G/DL (3.2-5.2); ALKALINE PHOSPHATASE 58 U/L (46-116); ALT/SGPT 26 U/L (7.0-40); AST/SGOT 11 U/L (<34); BILIRUBIN,TOTAL 0.6 MG/DL (0.3-1.2); BLOOD UREA NITROGEN 18 MG/DL (9-23); CALCIUM LEVEL 9.4 MG/DL (8.5-10.1); CARBON DIOXIDE LEVEL 26 MMOL/L (20-31); CHLORIDE LEVEL 100 MMOL/L (98-107); CREATININE FOR GFR 1.17 MG/DL (0.70-1.30); GLOMERULAR FILTRATION RATE > 60.0 (>60); GLUCOSE, FASTING 89 MG/DL (60-100); MAGNESIUM LEVEL 1.8 MG/DL (1.8-2.4); POTASSIUM SERUM 3.8 MMOL/L (3.5-5.1); SODIUM LEVEL 132 MMOL/L (136-145); TOTAL PROTEIN 6.9 G/DL (5.7-8.2)
== END ==
LOC: M LAB 10:20
PROVIDERS: ATTEND Internal Medicine Gastroenterology
DX: K50.918 Crohn's disease, unspecified, with other complication (principal); R19.7 Diarrhea, unspecified

== ENCOUNTER → 2023-06-30 | Outpatient (CLI) | payer MEDICARE, MEDICAID | LOC: M PLAIMG 13:17 | PROVIDERS: ATTEND Nurse Practitioner Family | DX: N18.1 Chronic kidney disease, stage 1 (principal); Z93.2 Ileostomy status ==

== ENCOUNTER 2023-07-06 14:30 | Outpatient (CLI) | payer MEDICARE, MEDICAID ==
[~2023-07-06] VITALS: Ht 167.6 cm; Wt 42.7 kg
[~2023-07-06 14:30] MED LIST changes: +ACETAMINOPHEN TAB 650MG DOSE (2X325MG) PO ONE; +ALBUTEROL SULFATE 2.5MG/0.5ML INH NEB SOLN INH PRN; +EPINEPHrine INJ 1 MG/ML 1ML AMP IM PRN; +NS 1,000 ML IV SCH; +diphenhydrAMINE 25MG CAP PO ONE; +diphenhydrAMINE 50MG/ML VIAL IV PRN; +methylPREDNISolone 125MG 2ML VIAL IV PRN
[2023-07-06] MEDS: VEDOLIZUMAB 300 MG in NS 250 ML IV ONE (14:52)
[2023-07-06 14:53] VITALS: BP 117/73; O2SAT 100
[2023-07-06 15:27] VITALS: BP 106/74; O2SAT 100
== END 2023-07-06 15:30 ==
LOC: M INFU 14:30
PROVIDERS: ATTEND Internal Medicine Gastroenterology
DX: K50.919 Crohn's disease, unspecified, with unspecified complications (principal)

== ENCOUNTER 2023-08-03 08:21 | Day surgery (SDC) | payer MEDICAID, MEDICARE ==
[~2023-08-03] VITALS: Ht 167.6 cm; Wt 43.4 kg
[~2023-08-03 08:21] MED LIST changes: -ACETAMINOPHEN TAB 650MG DOSE (2X325MG) PO ONE; -ALBUTEROL SULFATE 2.5MG/0.5ML INH NEB SOLN INH PRN; +CHOL378P3 PO; +DOXY-440 PO; -DOXY-444 PO; -EPINEPHrine INJ 1 MG/ML 1ML AMP IM PRN; +LEXA1TAB PO; +LOMO2.5T PO; -NS 1,000 ML IV SCH; -diphenhydrAMINE 25MG CAP PO ONE; -diphenhydrAMINE 50MG/ML VIAL IV PRN; -methylPREDNISolone 125MG 2ML VIAL IV PRN
[2023-08-03] MEDS ORDERED: LR 1,000 ML IV SCH (08:45)
[2023-08-03 09:24] LABS: HEMATOCRIT 47.2 % (42.0-52.0); HEMOGLOBIN 16.2 g/dl (13.5-17.5); MEAN CORPUSCULAR HGB CONC 34.3 g/dl (32.0-36.5); MEAN CORPUSCULAR VOLUME 93.3 fl (80.0-96.0); PLATELET COUNT, AUTOMATED 254 10^3/uL (150-450); RED BLOOD COUNT 5.06 10^6/uL (4.30-6.10); WHITE BLOOD COUNT 19.7 10^3/uL (4.0-10.0)
[2023-08-03] MEDS ORDERED: POTA-298 PO (10:04)
[2023-08-03 10:14] LABS: POTASSIUM SERUM 4.2 MMOL/L (3.5-5.1)
[2023-08-03] MEDS: ceFAZolin SOD 2 GM in IV 1 EA IV ONE (12:15)
[2023-08-03] MEDS ORDERED: fentaNYL 100 MCG/2 ML INJECTION As Ordered ONE (12:19)
[2023-08-03] MEDS ORDERED: MIDAZOLAM INJ 2MG/2ML VIAL As Ordered ONE (12:19)
[2023-08-03] MEDS ORDERED: FLOM0.4C39 PO (12:26)
[2023-08-03] MEDS ORDERED: OXYC1TAB23 PO (12:26)
[2023-08-03] MEDS ORDERED: ONDANSETRON 4MG 2ML VIAL As Ordered ONE (12:33)
[2023-08-03] MEDS ORDERED: LIDOCAINE PRES-FREE 2% 10ML AMP As Ordered ONE (12:33)
[2023-08-03] MEDS ORDERED: ACETAMINOPHEN 1000MG 100ML IV BAG As Ordered ONE (12:33)
[2023-08-03] MEDS ORDERED: propofoL 200 MG/20 ML VIAL As Ordered ONE (12:33)
[2023-08-03 13:46] VITALS: BP 115/75; TEMP 97.2; O2SAT 100
== END 2023-08-03 13:47 | disposition home or self-care (01) ==
LOC: M SDC 08:21
PROVIDERS: ATTEND Urology
DX: N20.0 Calculus of kidney (principal); N18.30 Chronic kidney disease, stage 3 unspecified; K50.90 Crohn's disease, unspecified, without complications; K21.9 Gastro-esophageal reflux disease without esophagitis; Z79.52 Long term (current) use of systemic steroids; F17.290 Nicotine dependence, other tobacco product, uncomplicated; Z90.49 Acquired absence of other specified parts of digestive tract; Z79.899 Other long term (current) drug therapy; F41.9 Anxiety disorder, unspecified
CPT/HCPCS: 36415; 50590; 74018; 84132; 84295; 85027; J0131; J0690; J1100; J2250; J2405; J3010

== ENCOUNTER 2023-08-08 13:10 | Outpatient (CLI) | payer MEDICAID, MEDICARE ==
[~2023-08-08] VITALS: Ht 167.6 cm; Wt 45.0 kg
[~2023-08-08 13:10] MED LIST changes: +ALBUTEROL SULFATE 2.5MG/0.5ML INH NEB SOLN INH PRN; +EPINEPHrine INJ 1 MG/ML 1ML AMP IM PRN; +FLOM0.4C39 PO; +NS 1,000 ML IV SCH; +OXYC1TAB23 PO; +POTA-298 PO; +diphenhydrAMINE 50MG/ML VIAL IV PRN; +methylPREDNISolone 125MG 2ML VIAL IV PRN
[2023-08-08 15:15] VITALS: BP 121/81; O2SAT 99
[2023-08-08] MEDS ORDERED: ACETAMINOPHEN TAB 650MG DOSE (2X325MG) PO ONE (15:30)
[2023-08-08] MEDS ORDERED: diphenhydrAMINE 25MG CAP PO ONE (15:30)
[2023-08-08] MEDS: VEDOLIZUMAB 300 MG in NS 250 ML IV ONE (15:41)
[2023-08-08 17:00] VITALS: BP 127/84; O2SAT 98
== END 2023-08-08 17:01 | disposition home or self-care (01) ==
LOC: M INFU 13:10
PROVIDERS: ATTEND Internal Medicine Gastroenterology
DX: K50.919 Crohn's disease, unspecified, with unspecified complications (principal); Z91.040 Latex allergy status

== ENCOUNTER → 2023-08-15 | Outpatient (REF) | payer MEDICARE ==
[~2023-08-15] MED LIST changes: -ALBUTEROL SULFATE 2.5MG/0.5ML INH NEB SOLN INH PRN; -EPINEPHrine INJ 1 MG/ML 1ML AMP IM PRN; -NS 1,000 ML IV SCH; -diphenhydrAMINE 50MG/ML VIAL IV PRN; -methylPREDNISolone 125MG 2ML VIAL IV PRN
== END ==
LOC: M LAB REF 13:17
PROVIDERS: ATTEND Internal Medicine Gastroenterology
DX: K50.918 Crohn's disease, unspecified, with other complication (principal); R19.7 Diarrhea, unspecified

== ENCOUNTER → 2023-08-21 | Outpatient (REF) | payer MEDICARE, MEDICAID | LOC: M SMT 12:37 | PROVIDERS: ATTEND Nurse Practitioner Family | DX: Z48.816 Encounter for surgical aftercare following surgery on the genitourinary system (principal) ==

== ENCOUNTER 2023-09-05 14:44 | Outpatient (CLI) | payer MEDICARE, OTHER ==
[~2023-09-05] VITALS: Ht 167.6 cm; Wt 43.2 kg
[~2023-09-05 14:44] MED LIST changes: +ALBUTEROL SULFATE 2.5MG/0.5ML INH NEB SOLN INH PRN; +EPINEPHrine INJ 1 MG/ML 1ML AMP IM PRN; +NS 1,000 ML IV SCH; +diphenhydrAMINE 50MG/ML VIAL IV PRN; +methylPREDNISolone 125MG 2ML VIAL IV PRN
[2023-09-05 15:25] VITALS: BP 93/57; O2SAT 95
[2023-09-05] MEDS ORDERED: diphenhydrAMINE 25MG CAP PO ONE (15:30)
[2023-09-05] MEDS ORDERED: ACETAMINOPHEN TAB 650MG DOSE (2X325MG) PO ONE (15:30)
[2023-09-05] MEDS: VEDOLIZUMAB 300 MG in NS 250 ML IV ONE (15:52)
[2023-09-15] MEDS ORDERED: OXYC1TAB23 PO (07:36)
== END 2023-09-05 16:55 | disposition home or self-care (01) ==
LOC: M INFU 14:44
PROVIDERS: ATTEND Internal Medicine Gastroenterology
DX: K50.90 Crohn's disease, unspecified, without complications (principal); Z91.040 Latex allergy status

== ENCOUNTER → 2023-09-05 | Outpatient (CLI) | payer MEDICARE | LOC: M RAD 14:49 | PROVIDERS: ATTEND Nurse Practitioner Family | DX: Z01.818 Encounter for other preprocedural examination (principal) ==

== ENCOUNTER 2023-09-14 10:33 | Day surgery (SDC) | payer MEDICAID, MEDICARE ==
[~2023-09-14] VITALS: Ht 167.6 cm; Wt 43.1 kg
[~2023-09-14 10:33] MED LIST changes: -ALBUTEROL SULFATE 2.5MG/0.5ML INH NEB SOLN INH PRN; -EPINEPHrine INJ 1 MG/ML 1ML AMP IM PRN; -NS 1,000 ML IV SCH; -diphenhydrAMINE 50MG/ML VIAL IV PRN; -methylPREDNISolone 125MG 2ML VIAL IV PRN
[2023-09-14] MEDS ORDERED: LIDOCAINE 2% 100MG/5ML SDV (FOR ANES.) As Ordered ONE (12:15)
[2023-09-14] MEDS ORDERED: MIDAZOLAM INJ 2MG/2ML VIAL As Ordered ONE (12:15)
[2023-09-14] MEDS ORDERED: propofoL 200 MG/20 ML VIAL As Ordered ONE (12:15)
[2023-09-14] MEDS ORDERED: fentaNYL 100 MCG/2 ML INJECTION As Ordered ONE (12:16)
[2023-09-14] MEDS: ceFAZolin SOD 2 GM in IV 1 EA IV ONE (13:04)
[2023-09-14] MEDS ORDERED: ACETAMINOPHEN 1000MG 100ML IV BAG As Ordered ONE (13:19)
[2023-09-14] MEDS ORDERED: ONDANSETRON 4MG 2ML VIAL As Ordered ONE (13:19)
[2023-09-14 13:36] VITALS: BP 104/63; TEMP 97.2; O2SAT 97
[2023-09-15] MEDS ORDERED: OXYC1TAB23 PO (07:36)
== END 2023-09-14 14:05 | disposition home or self-care (01) ==
LOC: M SDC 10:33
PROVIDERS: ATTEND Urology
DX: N20.0 Calculus of kidney (principal); N28.9 Disorder of kidney and ureter, unspecified; Z91.040 Latex allergy status; Z79.899 Other long term (current) drug therapy; Z87.442 Personal history of urinary calculi
CPT/HCPCS: 50590; 74018; J0131; J0690; J1100; J2250; J2405; J3010

== ENCOUNTER 2023-09-26 11:36 | Day surgery (SDC) | payer MEDICARE ==
[~2023-09-26] VITALS: Ht 167.6 cm; Wt 42.7 kg
[2023-09-26] MEDS: CelecoXIB 400 MG CAP PO ONE (12:36)
[2023-09-26] MEDS: ceFAZolin SOD 2 GM in IV 1 EA IV ONE (12:38)
[2023-09-26] MEDS: NS 1,000 ML IV ONE (12:38)
[2023-09-26 15:03] VITALS: BP 84/55; O2SAT 99
[2023-09-26] MEDS: PERCOCET 5MG/325MG TAB PO ONE (15:52)
== END 2023-09-26 15:59 | disposition home or self-care (01) ==
LOC: M OPP 11:36
PROVIDERS: ATTEND Surgery
DX: E63.9 Nutritional deficiency, unspecified (principal); Z43.1 Encounter for attention to gastrostomy; K92.2 Gastrointestinal hemorrhage, unspecified; F17.290 Nicotine dependence, other tobacco product, uncomplicated; Z79.620 Long term (current) use of immunosuppressive biologic; Z79.630 Long term (current) use of alkylating agent; Z79.891 Long term (current) use of opiate analgesic; Z79.899 Other long term (current) drug therapy; Z91.040 Latex allergy status
CPT/HCPCS: 43246; J0690

== ENCOUNTER 2023-11-13 13:47 | Outpatient (CLI) | payer MEDICARE ==
[~2023-11-13] VITALS: Ht 167.6 cm; Wt 45.2 kg
[~2023-11-13 13:47] MED LIST changes: +ALBUTEROL SULFATE 2.5MG/0.5ML INH NEB SOLN INH PRN; +EPINEPHrine INJ 1 MG/ML 1ML AMP IM PRN; +diphenhydrAMINE 50MG/ML VIAL IV PRN; +methylPREDNISolone 125MG 2ML VIAL IV PRN
[2023-11-13 14:00] VITALS: BP 91/53; O2SAT 99
[2023-11-13] MEDS ORDERED: NS 1,000 ML IV SCH (14:00)
[2023-11-13] MEDS ORDERED: ACETAMINOPHEN TAB 650MG DOSE (2X325MG) PO ONE (14:00)
[2023-11-13] MEDS ORDERED: diphenhydrAMINE 25MG CAP PO ONE (14:00)
[2023-11-13] MEDS: VEDOLIZUMAB 300 MG in NS 250 ML IV ONE (14:56)
[2023-11-13 15:45] VITALS: BP 90/57; O2SAT 99
== END 2023-11-13 15:45 ==
LOC: M INFU 13:47
PROVIDERS: ATTEND Internal Medicine Gastroenterology
DX: K50.90 Crohn's disease, unspecified, without complications (principal); Z91.040 Latex allergy status

== ENCOUNTER 2023-12-11 14:49 | Outpatient (CLI) | payer MEDICARE ==
[~2023-12-11] VITALS: Ht 167.6 cm; Wt 46.4 kg
[~2023-12-11 14:49] MED LIST changes: +ACETAMINOPHEN TAB 650MG DOSE (2X325MG) PO ONE; +NS 1,000 ML IV SCH; +diphenhydrAMINE 25MG CAP PO ONE
[2023-12-11 15:00] VITALS: BP 112/63; O2SAT 98
[2023-12-11] MEDS: VEDOLIZUMAB 300 MG in NS 250 ML IV ONE (15:33)
== END 2023-12-11 16:15 ==
LOC: M INFU 14:49
PROVIDERS: ATTEND Internal Medicine Gastroenterology
DX: K50.90 Crohn's disease, unspecified, without complications (principal); Z91.040 Latex allergy status

== ENCOUNTER 2024-01-08 14:21 | Outpatient (CLI) | payer MEDICARE ==
[~2024-01-08] VITALS: Ht 165.1 cm; Wt 5.0 kg
[~2024-01-08 14:21] MED LIST changes: -NS 1,000 ML IV SCH
[2024-01-08 14:30] VITALS: BP 113/85; O2SAT 99
[2024-01-08] MEDS: VEDOLIZUMAB 300 MG in LR 250 ML IV ONE (15:31)
[2024-01-08 16:10] VITALS: BP 101/70; O2SAT 100
== END 2024-01-08 16:10 ==
LOC: M INFU 14:21
PROVIDERS: ATTEND Internal Medicine Gastroenterology
DX: K50.90 Crohn's disease, unspecified, without complications (principal)

== ENCOUNTER 2024-02-05 14:21 | Outpatient (CLI) | payer MEDICARE ==
[~2024-02-05] VITALS: Ht 167.6 cm; Wt 44.5 kg
[~2024-02-05 14:21] MED LIST changes: -ACETAMINOPHEN TAB 650MG DOSE (2X325MG) PO ONE; +NS 1,000 ML IV SCH; -diphenhydrAMINE 25MG CAP PO ONE
[2024-02-05 14:25] VITALS: BP 112/75; O2SAT 100
[2024-02-05] MEDS: diphenhydrAMINE 25MG CAP PO ONE (14:58)
[2024-02-05] MEDS: ACETAMINOPHEN 650 MG PO ONE (14:59)
[2024-02-05] MEDS: VEDOLIZUMAB 300 MG in NS 250 ML IV ONE (15:00)
[2024-02-05 15:37] VITALS: BP 108/63; O2SAT 100
== END 2024-02-05 15:40 ==
LOC: M INFU 14:21
PROVIDERS: ATTEND Internal Medicine Gastroenterology
DX: K50.90 Crohn's disease, unspecified, without complications (principal); Z91.040 Latex allergy status

== ENCOUNTER 2024-03-12 14:00 | Outpatient (CLI) | payer MEDICARE ==
[~2024-03-12] VITALS: Ht 167.6 cm; Wt 45.0 kg
[~2024-03-12 14:00] MED LIST changes: +ACETAMINOPHEN 650 MG PO ONE; +VEDOLIZUMAB 300 MG in NS 250 ML IV ONE; +diphenhydrAMINE 25MG CAP PO ONE
[2024-03-12 14:05] VITALS: BP 107/71; O2SAT 97
[2024-03-12] MEDS: VEDOLIZUMAB 300 MG in NS 250 ML IV ONE (14:54)
[2024-03-12 15:30] VITALS: BP 112/78; O2SAT 100
[2024-03-12] MEDS ORDERED: SILVER NITRATE APPLICATOR (1 = QTY 10) As Ordered ONE (16:07)
[2024-03-13] MEDS ORDERED: OMEP40CA5 PO (15:18)
[2024-03-13] MEDS ORDERED: ARIP1TAB6 PO (15:18)
[2024-03-13] MEDS ORDERED: LOPE1CAP5 PO (15:18)
== END 2024-03-12 15:37 ==
LOC: M INFU 14:00
PROVIDERS: ATTEND Internal Medicine Gastroenterology
DX: K50.90 Crohn's disease, unspecified, without complications (principal); Z91.040 Latex allergy status

== ENCOUNTER 2024-03-12 22:16 | Inpatient (IN) | payer MEDICARE ==
[~2024-03-12] VITALS: Ht 167.6 cm; Wt 45.6 kg
[~2024-03-12 22:16] MED LIST changes: -ACETAMINOPHEN 650 MG PO ONE; -ALBUTEROL SULFATE 2.5MG/0.5ML INH NEB SOLN INH PRN; -EPINEPHrine INJ 1 MG/ML 1ML AMP IM PRN; -NS 1,000 ML IV SCH; -VEDOLIZUMAB 300 MG in NS 250 ML IV ONE; -diphenhydrAMINE 25MG CAP PO ONE; -diphenhydrAMINE 50MG/ML VIAL IV PRN; -methylPREDNISolone 125MG 2ML VIAL IV PRN
[2024-03-12 23:17] LABS: HEMATOCRIT 35.9 % (42.0-52.0); HEMOGLOBIN 12.6 g/dl (13.5-17.5); MEAN CORPUSCULAR HEMOGLOBIN 31.6 pg (27.0-33.0); MEAN CORPUSCULAR HGB CONC 35.1 g/dl (32.0-36.5); PLATELET COUNT, AUTOMATED 336 10^3/uL (150-450); RED BLOOD COUNT 3.99 10^6/uL (4.30-6.10); WHITE BLOOD COUNT 9.8 10^3/uL (4.0-10.0)
[2024-03-12 23:36] LABS: AMPHETAMINES LEVEL URINE NEGATIVE (NEGATIVE); BARBITURATES URINE NEGATIVE (NEGATIVE); BENZODIAZEPINES URINE NEGATIVE (NEGATIVE); CANNABINOIDS URINE NEGATIVE (NEGATIVE); COCAINE METABOLITE URINE NEGATIVE (NEGATIVE); METHADONE URINE NEGATIVE (NEGATIVE); OPIATES URINE NEGATIVE (NEGATIVE); PHENCYCLIDINE URINE NEGATIVE (NEGATIVE)
[2024-03-12 23:38] LABS: ETHYL ALCOHOL (ETHANOL) < 0.003 % (0.000-0.010)
[2024-03-12 23:40] LABS: ALKALINE PHOSPHATASE 80 U/L (40-129); ALT/SGPT 33 U/L (7.0-40); AST/SGOT 27 U/L (<34); BILIRUBIN,DIRECT < 0.1 MG/DL (<0.4); BILIRUBIN,TOTAL 0.3 MG/DL (0.3-1.2); BLOOD UREA NITROGEN 19 MG/DL (9-23); CARBON DIOXIDE LEVEL 28 MMOL/L (20-31); CHLORIDE LEVEL 98 MMOL/L (98-107); CREATININE FOR GFR 1.19 MG/DL (0.70-1.30); GLOMERULAR FILTRATION RATE > 60.0 (>60); GLUCOSE, FASTING 105 MG/DL (60-100); POTASSIUM SERUM 4.3 MMOL/L (3.5-5.1); SALICYLATE LEVEL < 3.0 MG/DL (<30); SODIUM LEVEL 135 MMOL/L (136-145); TOTAL PROTEIN 7.1 G/DL (5.7-8.2)
[2024-03-13] MEDS ORDERED: MAALOX 30 ML SUSP *UDC PO PRN (02:05)
[2024-03-13] MEDS ORDERED: MOM 30ML SUSPENSION UDC PO PRN (02:05)
[2024-03-13] MEDS ORDERED: IBUPROFEN 400MG TAB PO PRN (02:05)
[2024-03-13 04:14] VITALS: BP 102/65; TEMP 86; O2SAT 99
[2024-03-13] MEDS: OLANZapine 5 MG TAB PO SCH (09:35)
[2024-03-13] MEDS ORDERED: ARIP1TAB6 PO (15:18)
[2024-03-13] MEDS ORDERED: LOPE1CAP5 PO (15:18)
[2024-03-13] MEDS ORDERED: OMEP40CA5 PO (15:18)
[2024-03-13] MEDS ORDERED: HOME MED LIST COMPLETE! XX SCH (15:20)
[2024-03-13 16:00] VITALS: BP 97/51; TEMP 97.6; O2SAT 97
[2024-03-13] MEDS: MIDODRINE 5 MG TAB PO ONE (17:05)
[2024-03-13 18:24] LABS: BLOOD UREA NITROGEN 16 MG/DL (9-23); CALCIUM LEVEL 10.3 MG/DL (8.5-10.1); CARBON DIOXIDE LEVEL 28 MMOL/L (20-31); CHLORIDE LEVEL 100 MMOL/L (98-107); CREATININE FOR GFR 1.11 MG/DL (0.70-1.30); GLOMERULAR FILTRATION RATE > 60.0 (>60); GLUCOSE, FASTING 87 MG/DL (60-100); MAGNESIUM LEVEL 1.7 MG/DL (1.8-2.4); PHOSPHORUS LEVEL 4.2 MG/DL (2.5-4.9); POTASSIUM SERUM 4.3 MMOL/L (3.5-5.1); SODIUM LEVEL 138 MMOL/L (136-145)
[2024-03-13] MEDS: traZODone 50 MG TAB PO PRN (20:13)
[2024-03-14 06:47] VITALS: BP 106/67; TEMP 97.3; O2SAT 98
[2024-03-14 14:42] VITALS: BP 96/60; TEMP 97; O2SAT 100
[2024-03-15 06:28] VITALS: BP 142/78; TEMP 97.6; O2SAT 98
[2024-03-15] MEDS: OLANZapine ORAL DISINTEGRATING TAB 5MG PO PRN (15:34)
[2024-03-15 16:04] VITALS: BP 119/75; TEMP 97.9; O2SAT 100
[2024-03-15] MEDS: NICOTINE 21MG/24HR 1 EA TRANSDERMAL TD PRN (21:05)
[2024-03-15] MEDS: diphenhydrAMINE 25MG CAP PO PRN (22:46)
[2024-03-16 06:28] VITALS: BP 118/72; TEMP 97.6; O2SAT 99
[2024-03-16] MEDS: LOPERAMIDE 2 MG CAPLET PO ONE (12:58)
[2024-03-16] MEDS: LOPERAMIDE 2 MG CAPLET PO PRN (12:59)
[2024-03-16 15:23] VITALS: BP 108/71; TEMP 97.7; O2SAT 100
[2024-03-17 06:47] VITALS: BP 106/62; TEMP 97.3; O2SAT 99
[2024-03-17 16:13] VITALS: BP 111/70; TEMP 98.5; O2SAT 99
[2024-03-17] MEDS: ACETAMINOPHEN 325 MG TAB PO PRN (18:07)
[2024-03-18 06:27] VITALS: BP 109/58; TEMP 97.2; O2SAT 99
[2024-03-18 16:44] VITALS: BP 111/68; TEMP 98.9; O2SAT 100
[2024-03-19 06:28] VITALS: BP 103/65; TEMP 97.6; O2SAT 98
[2024-03-19] MEDS ORDERED: OLAN1TAB16 PO (12:38)
[2024-03-19] MEDS ORDERED: TRAZ-252 PO (12:38)
[2024-03-19] MEDS ORDERED: OLAN5ZYD PO (12:38)
== END 2024-03-19 12:56 | disposition home or self-care (01) | DRG 885 ==
LOC: M ED 22:16 → M ED INP 03-13 02:03 → M PSY 03-13 04:10
PROVIDERS: ADMIT Psychiatry & Neurology Psychiatry; ATTEND Psychiatry & Neurology Psychiatry
DX: F31.9 Bipolar disorder, unspecified (principal); R44.0 Auditory hallucinations; K50.90 Crohn's disease, unspecified, without complications; F17.290 Nicotine dependence, other tobacco product, uncomplicated; F41.9 Anxiety disorder, unspecified; N18.30 Chronic kidney disease, stage 3 unspecified; K21.9 Gastro-esophageal reflux disease without esophagitis; N40.0 Benign prostatic hyperplasia without lower urinary tract symptoms; Z90.49 Acquired absence of other specified parts of digestive tract; Z93.2 Ileostomy status; Z79.891 Long term (current) use of opiate analgesic; Z79.899 Other long term (current) drug therapy; Z91.040 Latex allergy status

== ENCOUNTER → 2024-04-01 | Outpatient (CLI) | payer MEDICARE ==
[~2024-04-01] MED LIST changes: +ARIP1TAB6 PO; +OLAN1TAB16 PO; +OLAN5ZYD PO; +OMEP40CA5 PO; +TRAZ-252 PO
== END ==
LOC: M INFU 14:13
PROVIDERS: ATTEND Internal Medicine Gastroenterology
DX: Z53.9 Procedure and treatment not carried out, unspecified reason (principal)

== ENCOUNTER → 2024-04-01 | Outpatient (CLI) | payer MEDICAID, MEDICARE | LOC: M RAD 10:05 | PROVIDERS: ATTEND Urology | DX: N20.0 Calculus of kidney (principal) ==

== ENCOUNTER 2024-04-09 14:14 | Outpatient (CLI) | payer MEDICARE ==
[~2024-04-09] VITALS: Ht 167.6 cm; Wt 51.8 kg
[~2024-04-09 14:14] MED LIST changes: +ALBUTEROL SULFATE 2.5MG/0.5ML INH NEB SOLN INH PRN; +EPINEPHrine INJ 1 MG/ML 1ML AMP IM PRN; +NS (Normal Saline) 0.9% 1,000 ML IV SCH; +diphenhydrAMINE 50MG/ML VIAL IV PRN; +methylPREDNISolone 125MG 2ML VIAL IV PRN
[2024-04-09 14:20] VITALS: BP 108/60; O2SAT 100
[2024-04-09] MEDS: VEDOLIZUMAB 300 MG in NS 250 ML IV ONE (15:02)
[2024-04-09 15:35] VITALS: BP 95/53; O2SAT 100
== END 2024-04-09 15:40 ==
LOC: M INFU 14:14
PROVIDERS: ATTEND Internal Medicine Gastroenterology
DX: K50.90 Crohn's disease, unspecified, without complications (principal); Z91.040 Latex allergy status

== ENCOUNTER → 2024-04-18 | Outpatient (CLI) | payer MEDICARE ==
[~2024-04-18] MED LIST changes: -ALBUTEROL SULFATE 2.5MG/0.5ML INH NEB SOLN INH PRN; -EPINEPHrine INJ 1 MG/ML 1ML AMP IM PRN; -NS (Normal Saline) 0.9% 1,000 ML IV SCH; -diphenhydrAMINE 50MG/ML VIAL IV PRN; -methylPREDNISolone 125MG 2ML VIAL IV PRN
== END ==
LOC: M PLAIMG 10:48
PROVIDERS: ATTEND Urology
DX: N20.0 Calculus of kidney (principal)

== ENCOUNTER 2024-06-04 14:00 | Outpatient (CLI) | payer MEDICAID, MEDICARE ==
[~2024-06-04] VITALS: Ht 167.6 cm; Wt 52.7 kg
[2024-06-04 14:00] VITALS: BP 106/65; O2SAT 98
[~2024-06-04 14:00] MED LIST changes: -NS (Normal Saline) 0.9% 1,000 ML IV SCH; -VEDOLIZUMAB 300 MG in NS 250 ML IV ONE
[2024-06-04] MEDS: VEDOLIZUMAB 300 MG in NS 250 ML IV ONE (14:56)
[2024-06-04 15:35] VITALS: BP 108/65; O2SAT 100
== END 2024-06-04 15:35 ==
LOC: M INFU 14:00
PROVIDERS: ATTEND Internal Medicine Gastroenterology
DX: K50.90 Crohn's disease, unspecified, without complications (principal); Z91.040 Latex allergy status

== ENCOUNTER → 2024-06-04 | Outpatient (CLI) | payer MEDICAID, MEDICARE ==
[~2024-06-04] MED LIST changes: +ALBUTEROL SULFATE 2.5MG/0.5ML INH NEB SOLN INH PRN; +EPINEPHrine INJ 1 MG/ML 1ML AMP IM PRN; +NS (Normal Saline) 0.9% 1,000 ML IV SCH; +VEDOLIZUMAB 300 MG in NS 250 ML IV ONE; +diphenhydrAMINE 50MG/ML VIAL IV PRN; +methylPREDNISolone 125MG 2ML VIAL IV PRN
== END ==
LOC: M INFU 13:43
PROVIDERS: ATTEND Internal Medicine Gastroenterology
DX: K50.90 Crohn's disease, unspecified, without complications (principal); Z91.040 Latex allergy status

== ENCOUNTER → 2024-07-02 | Outpatient (CLI) | payer MEDICAID, MEDICARE ==
[~2024-07-02] VITALS: Ht 167.6 cm; Wt 52.7 kg
[~2024-07-02] MED LIST changes: +NS (Normal Saline) 0.9% 1,000 ML IV SCH
[2024-07-02 14:10] VITALS: BP 97/65; O2SAT 98
[2024-07-02] MEDS: VEDOLIZUMAB 300 MG in NS 250 ML IV ONE (14:53)
[2024-07-02 15:35] VITALS: BP 100/59; O2SAT 100
== END ==
LOC: M INFU 13:59
PROVIDERS: ATTEND Internal Medicine Gastroenterology
DX: K50.90 Crohn's disease, unspecified, without complications (principal)

== ENCOUNTER 2024-07-30 13:39 | Outpatient (CLI) | payer MEDICARE ==
[~2024-07-30] VITALS: Ht 167.6 cm; Wt 52.7 kg
[~2024-07-30 13:39] MED LIST changes: +ALBUTEROL SULFATE 2.5MG/0.5ML INH CONCENTRATE NEB SOLN INH PRN; -ALBUTEROL SULFATE 2.5MG/0.5ML INH NEB SOLN INH PRN; -FLOM0.4C39 PO; +TAMS-18 PO
[2024-07-30 14:00] VITALS: BP 117/55; O2SAT 99
[2024-07-30] MEDS: VEDOLIZUMAB 300 MG in NS 250 ML IV ONE (14:23)
[2024-07-30 15:10] VITALS: BP 105/58; O2SAT 98
== END 2024-07-30 15:00 ==
LOC: M INFU 13:39
PROVIDERS: ATTEND Internal Medicine Gastroenterology
DX: K50.90 Crohn's disease, unspecified, without complications (principal); Z91.040 Latex allergy status

== ENCOUNTER 2024-10-22 11:35 | Outpatient (CLI) | payer MEDICARE ==
[~2024-10-22] VITALS: Ht 167.6 cm; Wt 59.5 kg
[~2024-10-22 11:35] MED LIST changes: +ALBUTEROL SULFATE 2.5 MG/0.5 ML INH CONCENTRATE NEB SOLN INH PRN; -ALBUTEROL SULFATE 2.5MG/0.5ML INH CONCENTRATE NEB SOLN INH PRN; +diphenhydrAMINE 50 MG/ML VIAL IV PRN; -diphenhydrAMINE 50MG/ML VIAL IV PRN; -methylPREDNISolone 125MG 2ML VIAL IV PRN
[2024-10-22] MEDS ORDERED: VEDOLIZUMAB 300 MG in NS 250 ML IV ONE (12:00)
[2024-10-22] MEDS: VEDOLIZUMAB 300 MG in NS 250 ML IV ONE (12:21)
[2024-10-22 13:05] VITALS: BP 111/64; O2SAT 98
== END 2024-10-22 13:05 ==
LOC: M INFU 11:35
PROVIDERS: ATTEND Internal Medicine Gastroenterology
DX: K50.90 Crohn's disease, unspecified, without complications (principal); Z91.040 Latex allergy status

== ENCOUNTER 2024-11-19 12:03 | Outpatient (CLI) | payer MEDICARE ==
[~2024-11-19] VITALS: Ht 157.5 cm; Wt 59.0 kg
[2024-11-19 12:10] VITALS: BP 105/64; O2SAT 98
[2024-11-19] MEDS: VEDOLIZUMAB 300 MG in NS 250 ML IV ONE (12:51)
[2024-11-19 13:30] VITALS: BP 108/68; O2SAT 100
== END 2024-11-19 13:35 | disposition home or self-care (01) ==
LOC: M INFU 12:03
PROVIDERS: ATTEND Internal Medicine Gastroenterology
DX: K50.90 Crohn's disease, unspecified, without complications (principal); Z91.040 Latex allergy status

== ENCOUNTER 2025-02-14 10:18 | Outpatient (CLI) | payer MEDICARE ==
[~2025-02-14] VITALS: Ht 167.6 cm; Wt 63.6 kg
[2025-02-14] MEDS: VEDOLIZUMAB 300 MG in NS 250 ML IV ONE (11:01)
[2025-02-14 11:40] VITALS: BP 122/84; O2SAT 100
== END 2025-02-14 11:40 | disposition home or self-care (01) ==
LOC: M INFU 10:18
PROVIDERS: ATTEND Internal Medicine Gastroenterology
DX: K50.90 Crohn's disease, unspecified, without complications (principal); Z91.040 Latex allergy status

== ENCOUNTER 2025-03-13 12:20 | Outpatient (CLI) | payer MEDICARE ==
[~2025-03-13] VITALS: Ht 167.6 cm; Wt 61.4 kg
[~2025-03-13 12:20] MED LIST changes: +ACETAMINOPHEN 650 MG PO ONE; -ALBUTEROL SULFATE 2.5 MG/0.5 ML INH CONCENTRATE NEB SOLN INH PRN; -EPINEPHrine INJ 1 MG/ML 1ML AMP IM PRN; -NS (Normal Saline) 0.9% 1,000 ML IV SCH; +VEDOLIZUMAB 300 MG in NS 250 ML IV ONE; -diphenhydrAMINE 50 MG/ML VIAL IV PRN
[2025-03-13 12:30] VITALS: BP 118/70; O2SAT 99
[2025-03-13] MEDS ORDERED: ACETAMINOPHEN 650 MG PO ONE (12:30)
[2025-03-13] MEDS: VEDOLIZUMAB 300 MG in NS 250 ML IV ONE (13:17)
[2025-03-13 13:55] VITALS: BP 100/67; O2SAT 97
== END 2025-03-13 15:45 | disposition home or self-care (01) ==
LOC: M INFU 12:20
PROVIDERS: ATTEND Internal Medicine Gastroenterology
DX: K50.90 Crohn's disease, unspecified, without complications (principal); Z91.040 Latex allergy status